=== PATIENT | male | born 1945 | race African-American/Black ===

== ENCOUNTER 2017-04-17 11:57 | Inpatient (IN) ==
[2017-04-17 13:18] LABS: Basophils # 0.1 10*3/uL (0.0-0.2); Basophils % 0.9 % (0.0-0.8); Eosinophils # 0.3 10*3/uL (0.0-0.87); Eosinophils % 3.1 % (0.00-10.9); Hematocrit 39.4 VOL% (42.0-52.0); Hemoglobin 13.4 GM/DL (14.0-18.0); Immature Granulocytes % 0.2 %; Immature Granulocytes Absolute 0.02 #; Lymphocytes # 2.9 10*3/uL (1.4-4.0); Lymphocytes % 30.6 % (21.2-54.2); Mean Corpuscular Hemoglobin 29 PG (27-34); Mean Corpuscular Volume 84.5 FL (87-102); Mean Platelet Volume 10.3 FL (9.6-12.0); Monocytes # 0.5 10*3/uL (0.11-0.8); Neutrophils # 5.6 10*3/uL (1.4-7.4); Neutrophils % 60.2 % (38.7-73.9); Platelet Count 354 T/CUMM (130-400); Red Blood Count 4.66 MC/CUMM (3.8-5.5); Red Cell Distribution Width 14.3 % (9.3-17.3); White Blood Count 9.4 T/CUMM (4-12)
[2017-04-17 13:35] LABS: INR 0.9; PT Patient Result 9.7 SECS
[2017-04-17 13:46] LABS: Alanine Aminotransferase 15 U/L (16-61); Alkaline Phosphatase 80 U/L (45-117); Aspartate Amino Transferase 10 U/L (0-37); Bilirubin,Total < 0.39 MG/DL (0.2-1.0); Blood Urea Nitrogen 17 MG/DL (7-18); Calcium 9.5 MG/DL (8.5-10.1); Glucose 258 MG/DL (74-106); Osmolality,Calculated 287.5 MOS/KG (273-304); Potassium 3.7 MMOL/L (3.5-5.1); Sodium 139 MMOL/L (136-145)
[2017-04-17] MEDS ORDERED: LABETALOL 20 MG/4 ML SYRINGE IV PRN (15:10)
[2017-04-17] MEDS ORDERED: LACTULOSE 20 GM/30 ML UDCUP PO PRN (15:17)
[2017-04-17] MEDS ORDERED: DOCUSATE SODIUM 100 MG CAPSULE PO PRN (15:17)
[2017-04-17] MEDS ORDERED: ONDANSETRON 4 MG/2 ML VIAL IV PRN (15:17)
[2017-04-17 16:14] LABS: Risk Ratio 8.18; Troponin I Only 0.021 NG/ML (0.00-0.045); VLDL CHOLESTEROL 99.6 MG/DL
[2017-04-17] MEDS ORDERED: DEXTROSE 50% 25 GM/50 ML VIAL IV PRN ×2 (17:06→21:09)
[2017-04-17] MEDS ORDERED: GLUCAGON 1 MG VIAL IM PRN ×2 (17:06→21:09)
[2017-04-17] MEDS: ASPIRIN 325 MG TABLET PO SCH (17:15)
[2017-04-17] MEDS: CLOPIDOGREL 75 MG TABLET PO SCH (17:16)
[2017-04-17] MEDS: PANTOPRAZOLE 40 MG TABLET PO SCH (17:16)
[2017-04-17] MEDS: SODIUM CHLORIDE 0.9% 1,000 ML IV SCH (17:18)
[2017-04-17] MEDS: ATORVASTATIN 20 MG TABLET PO SCH (21:35)
[2017-04-17] MEDS: INSULIN LISPRO 100 UNIT/ML SUBCUT SCH (22:13)
[2017-04-18] MEDS: SODIUM CHLORIDE 0.9% 1,000 ML IV SCH ×3 (02:18→21:45)
[2017-04-18 06:31] LABS: Calcium 8.2 MG/DL (8.5-10.1); Osmolality,Calculated 289.8 MOS/KG (273-304); Potassium 3.1 MMOL/L (3.5-5.1)
[2017-04-18 06:35] LABS: Risk Ratio 6.92; VLDL CHOLESTEROL 67.8 MG/DL
[2017-04-18 07:15] LABS: Basophils # 0.1 10*3/uL (0.0-0.2); Basophils % 0.8 % (0.0-0.8); Eosinophils # 0.3 10*3/uL (0.0-0.87); Eosinophils % 4.1 % (0.00-10.9); Hematocrit 33.4 VOL% (42.0-52.0); Hemoglobin 11.6 GM/DL (14.0-18.0); Immature Granulocytes % 0.4 %; Immature Granulocytes Absolute 0.03 #; Lymphocytes # 2.5 10*3/uL (1.4-4.0); Lymphocytes % 32.7 % (21.2-54.2); Mean Corpuscular HGB Conc 34.7 GM/DL (32-36); Mean Corpuscular Hemoglobin 29 PG (27-34); Mean Corpuscular Volume 82.7 FL (87-102); Monocytes # 0.6 10*3/uL (0.11-0.8); Monocytes % 7.1 % (1.7-12.7); Neutrophils # 4.3 10*3/uL (1.4-7.4); Neutrophils % 54.9 % (38.7-73.9); Platelet Count 286 T/CUMM (130-400); Red Blood Count 4.04 MC/CUMM (3.8-5.5); Red Cell Distribution Width 14.2 % (9.3-17.3); White Blood Count 7.8 T/CUMM (4-12)
[2017-04-18] MEDS: INSULIN LISPRO 100 UNIT/ML SUBCUT SCH ×4 (08:54→21:45)
[2017-04-18] MEDS: CLOPIDOGREL 75 MG TABLET PO SCH (09:03)
[2017-04-18] MEDS: ASPIRIN 325 MG TABLET PO SCH (09:03)
[2017-04-18] MEDS: PANTOPRAZOLE 40 MG TABLET PO SCH (09:03)
[2017-04-18] MEDS ORDERED: LORazepam 2 MG/1 ML VIAL IV ONE (10:59)
[2017-04-18] MEDS: LISINOPRIL/HCTZ 20-12.5 MG TABLET PO SCH (16:45)
[2017-04-18] MEDS: metFORMIN 500 MG TABLET PO SCH (16:45)
[2017-04-18] MEDS: ATORVASTATIN 20 MG TABLET PO SCH (21:45)
[2017-04-19 05:22] LABS: Basophils # 0.1 10*3/uL (0.0-0.2); Basophils % 0.8 % (0.0-0.8); Eosinophils # 0.3 10*3/uL (0.0-0.87); Eosinophils % 4.3 % (0.00-10.9); Hematocrit 33.3 VOL% (42.0-52.0); Hemoglobin 11.3 GM/DL (14.0-18.0); Immature Granulocytes % 0.4 %; Immature Granulocytes Absolute 0.03 #; Lymphocytes # 2.6 10*3/uL (1.4-4.0); Lymphocytes % 33.2 % (21.2-54.2); Mean Corpuscular HGB Conc 33.9 GM/DL (32-36); Mean Corpuscular Hemoglobin 29 PG (27-34); Mean Corpuscular Volume 84.9 FL (87-102); Mean Platelet Volume 10.4 FL (9.6-12.0); Monocytes # 0.6 10*3/uL (0.11-0.8); Monocytes % 7.3 % (1.7-12.7); Neutrophils # 4.3 10*3/uL (1.4-7.4); Platelet Count 289 T/CUMM (130-400); Red Blood Count 3.92 MC/CUMM (3.8-5.5); Red Cell Distribution Width 14.1 % (9.3-17.3); White Blood Count 7.9 T/CUMM (4-12)
[2017-04-19 05:52] LABS: Calcium 8.6 MG/DL (8.5-10.1); Osmolality,Calculated 286.3 MOS/KG (273-304); Potassium 3.4 MMOL/L (3.5-5.1)
[2017-04-19] MEDS ORDERED: POTASSIUM CHLORIDE 20 MEQ TABLET PO ONE ×2 (09:00→11:46)
[2017-04-19] MEDS: INSULIN LISPRO 100 UNIT/ML SUBCUT SCH ×4 (09:42→21:23)
[2017-04-19] MEDS: CLOPIDOGREL 75 MG TABLET PO SCH (09:42)
[2017-04-19] MEDS: LISINOPRIL/HCTZ 20-12.5 MG TABLET PO SCH (09:42)
[2017-04-19] MEDS: ASPIRIN 325 MG TABLET PO SCH (09:42)
[2017-04-19] MEDS: PANTOPRAZOLE 40 MG TABLET PO SCH (09:42)
[2017-04-19] MEDS: metFORMIN 500 MG TABLET PO SCH ×2 (09:42→16:52)
[2017-04-19] MEDS: SODIUM CHLORIDE 0.9% 1,000 ML IV SCH ×2 (16:53→19:40)
[2017-04-19] MEDS ORDERED: hydrALAZINE 20 MG/1 ML VIAL IM PRN (19:57)
[2017-04-19] MEDS ORDERED: SODIUM CHLORIDE 0.9% 1,000 ML IV SCH (19:59)
[2017-04-19] MEDS: ATORVASTATIN 20 MG TABLET PO SCH (20:39)
[2017-04-19] MEDS ORDERED: hydrALAZINE 20 MG/1 ML VIAL IV PRN (22:15)
[2017-04-20 05:03] LABS: Basophils # 0.1 10*3/uL (0.0-0.2); Basophils % 1.1 % (0.0-0.8); Eosinophils # 0.4 10*3/uL (0.0-0.87); Hematocrit 35.5 VOL% (42.0-52.0); Immature Granulocytes % 0.4 %; Immature Granulocytes Absolute 0.04 #; Lymphocytes # 2.9 10*3/uL (1.4-4.0); Lymphocytes % 29.1 % (21.2-54.2); Mean Corpuscular HGB Conc 33.8 GM/DL (32-36); Mean Corpuscular Hemoglobin 29 PG (27-34); Mean Corpuscular Volume 84.9 FL (87-102); Mean Platelet Volume 10.3 FL (9.6-12.0); Monocytes # 0.8 10*3/uL (0.11-0.8); Monocytes % 7.5 % (1.7-12.7); Neutrophils # 5.8 10*3/uL (1.4-7.4); Neutrophils % 57.9 % (38.7-73.9); Platelet Count 305 T/CUMM (130-400); Red Blood Count 4.18 MC/CUMM (3.8-5.5)
[2017-04-20 05:30] LABS: Calcium 8.9 MG/DL (8.5-10.1); Magnesium 1.5 MG/DL (1.8-2.4); Osmolality,Calculated 280.4 MOS/KG (273-304); Potassium 3.5 MMOL/L (3.5-5.1)
[2017-04-20] MEDS: INSULIN LISPRO 100 UNIT/ML SUBCUT SCH ×4 (08:49→20:42)
[2017-04-20] MEDS: sitaGLIPtin 25 MG TABLET PO SCH (08:50)
[2017-04-20] MEDS: PANTOPRAZOLE 40 MG TABLET PO SCH (08:50)
[2017-04-20] MEDS: ASPIRIN 325 MG TABLET PO SCH (08:50)
[2017-04-20] MEDS: LISINOPRIL/HCTZ 20-12.5 MG TABLET PO SCH (08:50)
[2017-04-20] MEDS: metFORMIN 500 MG TABLET PO SCH ×2 (08:50→16:29)
[2017-04-20 09:17] LABS: Apearance,Urine Turbid (Clear); Bilirubin,Urine Negative (Negative); Blood, Urine Large mg/dL (Negative); Glucose,Urine (UA) 150 mg/dL (Negative); Ketones,Urine Negative (Negative); Nitrite,Urine Negative (Negative); Protein,Urine >500 MG/DL; RBC,Urine 22490 /HPF (0-4); Squamous Epithelial Cell,Urine Few /HPF (0-10); Urine Color Red (Yellow); Urine Urobilinogen 0.2 EU/DL (0.2-1.0)
[2017-04-20 12:16] LABS: Protein/Creatinine Ratio,Urine 5.4 RATIO
[2017-04-20] MEDS: ATORVASTATIN 20 MG TABLET PO SCH (20:42)
[2017-04-21] MEDS ORDERED: LIDOCAINE 2% TOP JELLY 20 ML VIAL INTRAURETH ONE (07:50)
[2017-04-21] MEDS: ASPIRIN 325 MG TABLET PO SCH (10:34)
[2017-04-21] MEDS: LISINOPRIL/HCTZ 20-12.5 MG TABLET PO SCH (10:34)
[2017-04-21] MEDS: PANTOPRAZOLE 40 MG TABLET PO SCH (10:34)
[2017-04-21] MEDS: metFORMIN 500 MG TABLET PO SCH ×2 (10:35→17:00)
[2017-04-21] MEDS: FINASTERIDE 5 MG TABLET PO SCH (10:35)
[2017-04-21] MEDS: sitaGLIPtin 25 MG TABLET PO SCH (10:35)
[2017-04-21] MEDS: INSULIN LISPRO 100 UNIT/ML SUBCUT SCH ×4 (10:57→22:53)
[2017-04-21] MEDS: ATORVASTATIN 20 MG TABLET PO SCH (22:56)
[2017-04-22 07:59] VITALS: BP 184/83
[2017-04-22] MEDS: metFORMIN 500 MG TABLET PO SCH (08:28)
[2017-04-22] MEDS: FINASTERIDE 5 MG TABLET PO SCH (08:28)
[2017-04-22] MEDS: sitaGLIPtin 25 MG TABLET PO SCH (08:29)
[2017-04-22] MEDS: ASPIRIN 325 MG TABLET PO SCH (08:29)
[2017-04-22] MEDS: LISINOPRIL/HCTZ 20-12.5 MG TABLET PO SCH (08:29)
[2017-04-22] MEDS: PANTOPRAZOLE 40 MG TABLET PO SCH (08:29)
[2017-04-22] MEDS: INSULIN LISPRO 100 UNIT/ML SUBCUT SCH (08:31)
== END 2017-04-22 11:21 | disposition home health service (06) | DRG 65 ==
LOC: N.ED 11:57 → SUATTDRO 14:20 → N.EDINP 14:20 → N.2E 16:17
PROVIDERS: ADMIT Internal Medicine Infectious Disease; ATTEND Internal Medicine Cardiovascular Disease